=== PATIENT | female | born 1965 | race African-American/Black ===

== ENCOUNTER 2017-11-09 13:07 | Emergency (ER) | payer SELFPAY ==
[2017-11-09 13:58] LABS: #Eosinphils 0.1 thou/uL (0.0-0.7); #Lymphocytes 1.2 thou/uL (1.20-3.40); #Monocytes 0.2 thou/uL (0.11-0.59); #Neutrophils 2.3 thou/uL (1.40-6.50); %Eosinophils 1.6 % (0.0-10.0); %Lymphocytes 32.2 % (21.0-51.0); %Monocytes 5.6 % (0.0-10.0); %Neutrophils 60.6 % (42.0-75.0); Hemoglobin 11.9 g/dL (12.0-16.0); Mean Corpuscular HGB CONC 32.9 g/dL (32.0-36.0); Mean Corpuscular Hemoglobin 31.4 pg (27.0-31.0); Mean Corpuscular Volume 95.5 fl (81.0-99.0); Mean Platelet Volume 7.9 fL (7.4-10.4); Platelet Count 195 thou/uL (130-400); White Blood Cell (WBC) Count 3.7 thou/uL (4.8-10.8)
[2017-11-09 14:20] LABS: ALT (SGPT) 11 U/L (8-55); AST (SGOT) 15 U/L (5-34); Alkaline Phosphatase 57 U/L (40-150); Anion Gap 11 mmol/L (10-20); BUN (Urea Nitrogen) 9 mg/dL (9.8-20.1); Bilirubin, Total 0.4 mg/dL (0.2-1.2); CK (CPK) 181 U/L (29-168); Calc. Creatinine Clearance 0 mL/min (70-130); Calcium 9.8 mg/dL (7.8-10.44); Carbon Dioxide 25 mmol/L (22-29); Chloride 107 mmol/L (98-107); Estimated GFR-MDRD 90; Globulin 4.1 g/dL (2.4-3.5); Glucose 142 mg/dL (70-105); Potassium 3.7 mmol/L (3.5-5.1); Protein, Total 8.1 g/dL (6.0-8.3); Sodium 139 mmol/L (136-145)
[2017-11-09 14:23] LABS: Troponin I Less than 0.010 ng/mL (< 0.028)
[2017-11-09 15:00] LABS: Bilirubin Negative (Negative); Blood, Urine Trace (Negative); Clarity CLEAR (Clear); Glucose, Urine (Dipstick) Negative (Negative); Leukocyte Negative (Negative); Nitrite Negative (Negative); Protein, Urine (Dipstick) 100 mg/dL (Neg-Trace); Specific Gravity, Urine 1.025 (1.002-1.036)
[2017-11-09 15:03] LABS: Bacteria/HPF None Seen HPF (None Seen); Hyaline Casts/LPF 0-3 HYALINE CAST LPF (0-3 Hyaline); Squamous Epithelial 0-3 HPF (0-3); WBC/HPF 0-3 HPF (0-3)
[2017-11-09] MEDS ORDERED: Meclizine HCl 25 MG TAB ONE (15:16)
== END 2017-11-09 16:34 | disposition home or self-care (01) ==
LOC: ERS 13:07
DX: R42 Dizziness and giddiness (principal); I10 Essential (primary) hypertension; Z87.891 Personal history of nicotine dependence; Z79.899 Other long term (current) drug therapy
CPT/HCPCS: 36415; 80053; 81003; 81015; 82553; 84484; 85025; 93005

== ENCOUNTER 2018-10-19 12:44 | Emergency (ER) | payer SELFPAY | END 2018-10-19 15:39 | disposition left against medical advice (07) | LOC: ERS 12:44 | DX: Z53.21 Procedure and treatment not carried out due to patient leaving prior to being seen by health care provider (principal) ==

== ENCOUNTER 2019-06-23 00:56 | Emergency (ER) | payer SELFPAY ==
[2019-06-23] MEDS ORDERED: Naproxen 500 MG TAB ONE (02:18)
--- NOTE | 2019-06-23 07:50 | RAD ---
Exam: XR Ankle Lt 3 View STANDARD HISTORY: Left ankle pain after a fall one day ago. COMPARISON: None FINDINGS: The ankle mortise is congruent. Small posterior and plantar calcaneal enthesophytes are identified. There is a tiny osseous density seen just dorsal to the anterior process of the talus. A very tiny av ulsion type injury cannot be entirely excluded. Correlation for point tenderness in this region is recommended. No additional acute fracture, dislocation, or other acute osseous abnormality is identified. IMPRESSION: Tiny osseous density dorsal to the anterior process of the talus. Tiny avulsion injury cannot be enti rely excluded. Correlation for point tenderness in this region is recommended.
--- NOTE | 2019-06-23 07:51 | RAD ---
Exam: XR Foot Lt 3 View STANDARD HISTORY: Left ankle pain after a fall one day ago. COMPARISON: None FINDINGS: There is a tiny osseous density just dorsal to the anterior process of the talus. Very tiny avulsion type injury cannot be entirely excluded. Correlation for point tenderness in this region is recommended. Small posterior and plantar calcaneal enthesophytes are identified. No additional acute fracture, dislocation, or other acute osseous abnormality is identified. IMPRESSION: Tiny osseous density dorsal to the anterior process of talus. A tiny avulsion injury cannot be entire ly excluded. Correlation for point tenderness in this region is recommended.
== END 2019-06-23 02:24 | disposition home or self-care (01) ==
LOC: ERS 00:56
DX: M25.572 Pain in left ankle and joints of left foot (principal); I10 Essential (primary) hypertension; Z79.899 Other long term (current) drug therapy

== ENCOUNTER 2020-01-06 15:36 | Outpatient (CLI) | payer BC ==
--- NOTE | 2020-01-06 16:18 | RAD ---
XR Hip Lt 2-3 View History: Hip pain Comparison: None. Findings: Small acetabular osteophyte formation. Mild degenerative disease of the left SI joint. Mild narrowing of the pubic symphysis. Mild enthesopathic changes of the greater trochanter. Impression: Mild degenerative changes. No acute osseous abnormality.
--- NOTE | 2020-01-06 16:18 | RAD ---
EXAM: XR Lumbar Spine 2 Or 3 View PROVIDED CLINICAL HISTORY: Low back pain with radiation into bilateral hips. COMPARISON: None FINDINGS: There are 5 nonrib-bearing lumbar-type vertebral bodies. The vertebral body heights are within normal limits. Scattered osteophytes are seen in the lower thoracic spine as well as involving the lumbar spine. There is loss of intervertebral disc height the L5-S1 level with vacuum phenomenon present. Fa cet degenerative changes are seen in the lower lumbar spine. No fracture or subluxation is seen. Surgical clips overlie the right upper quadrant. IMPRESSION: Degenerative changes in the lumbar spine.
--- NOTE | 2020-01-06 16:19 | RAD ---
TWO VIEWS OF THE RIGHT HIP: 01/06/20 COMPARISON: None. HISTORY: Right hip pain. FINDINGS: Two views of the right hip shows no evidence of acute fracture or dislocation. No degenerative change s are seen. IMPRESSION: Unremarkable exam. POS: [facility]
== END 2020-01-06 15:37 | disposition home or self-care (01) ==
LOC: BICRAD 15:36
PROVIDERS: ATTEND Family Medicine
DX: M25.552 Pain in left hip (principal); M25.551 Pain in right hip; M54.5 Low back pain; M16.12 Unilateral primary osteoarthritis, left hip; M47.816 Spondylosis without myelopathy or radiculopathy, lumbar region
CPT/HCPCS: 72100

== ENCOUNTER 2020-05-26 14:07 | Emergency (ER) | payer BC, SELFPAY ==
--- NOTE | 2020-05-26 15:05 | RAD ---
EXAM: 4 views of the left knee HISTORY: Knee pain COMPARISON: None FINDINGS: No knee effusion is seen. There is no evidence of acute fracture or dislocation. No signifi cant degenerative changes are seen. No soft tissue swelling is present. IMPRESSION: No evidence of acute osseous abnormality.
--- NOTE | 2020-05-26 16:51 | ULT ---
EXAM: Left lower extremity venous Doppler US HISTORY: left lower extremity pain FINDINGS: Grayscale, color-flow, Doppler evaluation, spectral analysis of the left lower extremity venous struc tures is performed with 2-D imaging. The left common femoral, superficial femoral, popliteal, posterior tibial, proximal greater saphenous and profunda femoral veins are imaged. There is normal luminal compressibility, flow, and augmentation the visualized deep venous structures of the left lower extremity. IMPRESSION: No evidence of a deep vein thrombosis in the left lower extremity.
[2020-05-26] MEDS ORDERED: Ketorolac Tromethamine 30 MG/ML VIAL ONE (17:01)
== END 2020-05-26 17:07 | disposition short-term general hospital (02) ==
LOC: ERS 14:07
DX: M25.562 Pain in left knee (principal)
CPT/HCPCS: 96372; J1885

== ENCOUNTER 2023-04-23 13:02 | Emergency (ER) | payer OTHER, SELFPAY ==
[2023-04-23] MEDS ORDERED: Ketorolac Tromethamine 30 MG/ML VIAL ONE (14:56)
== END 2023-04-23 16:35 | disposition home or self-care (01) ==
LOC: ERS 13:02
DX: S39.012A Strain of muscle, fascia and tendon of lower back, initial encounter (principal); I10 Essential (primary) hypertension; E78.00 Pure hypercholesterolemia, unspecified; V89.2XXA Person injured in unspecified motor-vehicle accident, traffic, initial encounter
CPT/HCPCS: 72125; 72128; 72131; 96372; J1885

== ENCOUNTER 2024-11-12 08:50 | Emergency (ER) | payer SELFPAY ==
[2024-11-12 10:12] LABS: Hemoglobin 9.6 g/dL (12.0-16.0); Mean Corpuscular HGB CONC 34.3 g/dL (32.0-36.0); Mean Corpuscular Hemoglobin 30.9 pg (27.0-31.0); Mean Platelet Volume 12.4 fL (7.4-10.4); Platelet Count 23 10x3/uL (130-400); RBC Distribution Width 14.5 % (11.5-14.5); Red Blood Cell (RBC) Count 3.11 mill/uL (4.20-5.40)
[2024-11-12 10:23] LABS: INR-International Normal Ratio 1.3; Prothrombin Time 15.9 sec (12.0-14.7)
[2024-11-12 10:31] LABS: ALT (SGPT) 22 U/L (8-55); AST (SGOT) 18 U/L (5-34); Albumin 3.9 g/dL (3.5-5.0); Alkaline Phosphatase 68 U/L (40-110); Anion Gap 10 mmol/L (10-20); BUN (Urea Nitrogen) 23 mg/dL (9.8-20.1); Bilirubin, Total 0.3 mg/dL (0.2-1.2); Calc. Creatinine Clearance 0 mL/min (70-130); Calcium 10.1 mg/dL (7.8-10.44); Carbon Dioxide 26 mmol/L (22-29); Chloride 103 mmol/L (98-107); Estimated GFR 58; Globulin 5.1 g/dL (2.4-3.5); Glucose 262 mg/dL (70-105); Potassium 3.6 mmol/L (3.5-5.1); Sodium 135 mmol/L (136-145)
[2024-11-12 10:57] LABS: Troponin I 0.011 ng/mL (< 0.028)
[2024-11-12 11:03] LABS: #Basophils 0.04 10x3/uL (0.0-0.2); #Eosinophils Less than 0.03 10x3/uL (0.0-0.7); %Basophils 0.6 % (0.0-1.0); %Eosinophils 0.3 % (0.0-10.0); %Lymphocytes 11.9 % (21.0-51.0); %Monocytes 28.4 % (0.0-10.0); %Neutrophils 47.5 % (42.0-75.0); Band 6 % (5-11); Eosinophils 1 % (0-10); Lymphocytes 29 % (21-51); Monocytes 10 % (0-10); Myelocyte 2 % (0-0); Neutrophil 51 % (42-75); Nucleated RBC (Manual Ct) 14 % (0); Plasma Cells 0 % (0-0); Platelet Adequacy Comment Appears Decreased; Polychromasia MODERATE = 3-4 cells (100X) (0-2/hpf); Total Cell Count 98
[2024-11-12] MEDS ORDERED: Morphine 4 MG/ML VIAL ONE ×2 (16:06→17:52)
== END 2024-11-12 18:08 | disposition short-term general hospital (02) ==
LOC: ERS 08:50
DX: T14.8XXA Other injury of unspecified body region, initial encounter (principal); D69.6 Thrombocytopenia, unspecified; I10 Essential (primary) hypertension; E78.5 Hyperlipidemia, unspecified; Z79.899 Other long term (current) drug therapy
CPT/HCPCS: 36415; 71045; 80053; 83615; 84484; 84550; 85025; 85060; 85384; 85610; 85730; 88121; 88184; 88185; 88189; 93005; 96374; 96376; J2272

== ENCOUNTER 2025-09-29 10:41 | Outpatient (CLI) | payer OTHER | END 2025-09-29 10:42 | disposition home or self-care (01) | LOC: BICRAD 10:41 | PROVIDERS: ATTEND Family Medicine | DX: M25.551 Pain in right hip (principal) ==